=== PATIENT | male | born 1970 | race Caucasian/White ===

== ENCOUNTER 2020-10-11 11:24 | Emergency (ER) | payer BC, OTHER ==
[~2020-10-11] VITALS: Ht 170.2 cm; Wt 83.9 kg
[2020-10-11] MEDS ORDERED: ONDANSETRON HCL 4 MG/2 ML VIAL IV ONE ×2 (12:00→13:45)
[2020-10-11] MEDS ORDERED: HYDROmorphone HCL 2 MG/ML VL IV ONE ×2 (12:00→13:45)
[2020-10-11 13:56] VITALS: BP 116/79
== END 2020-10-11 14:18 | disposition home or self-care (01) ==
LOC: ER 11:24
DX: S62.101A Fracture of unspecified carpal bone, right wrist, initial encounter for closed fracture (principal); V86.56XA Driver of dirt bike or motor/cross bike injured in nontraffic accident, initial encounter; Y93.89 Activity, other specified; Y92.89 Other specified places as the place of occurrence of the external cause; Y99.8 Other external cause status
CPT/HCPCS: 29125; 72131; 73100; 96374; 96375; 96376; 99284; J1170; J2405